=== PATIENT | female | born 1980 | race African-American/Black ===

== ENCOUNTER 2017-01-19 15:01 | Emergency (ER) | payer SELFPAY ==
[2017-01-19] MEDS ORDERED: KETOROLAC TROMETHAMINE 60 MG/2 ML SDV IM ONE (16:15)
--- NOTE | 2017-01-19 16:21 | ER Document Report ---
ED Neck/Back Problem - General Chief Complaint: Back Pain Stated Complaint: BACK PAIN Time Seen by Provider: 01/19/17 16:09 Notes: 36 yo female c/o low back pain x 3 weeks. pt works as a nursing administrator at senior living. pt reports she was lifting a patient and hurt her back. + radiation to both legs. no fever, no paresthesias, no bowel/bladder change. pt has not seen any provider for this pain. she has not tried any OTC meds no hx/o cancer TRAVEL OUTSIDE OF THE [place] IN LAST 30 DAYS: No - HPI Patient complains to provider of: Pain, Injury Where: Work Timing: Constant, Worse Quality of pain: Burning, Sharp Recent injury: Yes Associated symptoms: Radiation to leg, Lower back pain. denies: Fever, Incontinence, Motor loss, Numbness/tingling Exacerbated by: Other - lifting, changing position Relieved by: Nothing - Related Data Allergies/Adverse Reactions: No Known Allergies Allergy (Verified 01/19/17 15:14) Past Medical History - General Information source: Patient - Social History Smoking Status: Unknown if Ever Smoked Chew tobacco use (# tins/day): No Frequency of alcohol use: None Drug Abuse: None Lives with: Family Family History: Reviewed & Not Pertinent - Medical History Medical History: Negative Renal/ Medical History: Denies: Hx Peritoneal Dialysis Past Surgical History: Reports: Hx Gynecologic Surgery - d&c, Hx Tubal Ligation - Immunizations Immunizations up to date: Yes Hx Diphtheria, Pertussis, Tetanus Vaccination: Yes Review of Systems - Review of Systems Constitutional: No symptoms reported EENT: No symptoms reported Cardiovascular: No symptoms reported Respiratory: No symptoms reported Gastrointestinal: No symptoms reported Genitourinary: No symptoms reported Female Genitourinary: No symptoms reported Musculoskeletal: See HPI Skin: No symptoms reported Hematologic/Lymphatic: No symptoms reported Neurological/Psychological: No symptoms reported Physical Exam - Vital signs Vitals: Temp Pulse Resp BP Pulse Ox 97.8 F 85 18 130/88 H 100 01/19/17 15:12 01/19/17 15:12 01/19/17 15:12 01/19/17 15:12 01/19/17 15:12 Interpretation: Normal - General General appearance: Appears well, Alert - HEENT Head: Normocephalic, Atraumatic Eyes: Normal Pupils: PERRL - Respiratory Respiratory status: No respiratory distress Chest status: Nontender Breath sounds: Normal Chest palpation: Normal - Cardiovascular Rhythm: Regular Heart sounds: Normal auscultation Murmur: No - Abdominal Inspection: Normal Distension: No distension Bowel sounds: Normal Tenderness: Nontender Organomegaly: No organomegaly - Back Back: Tender - lumbar spinal and right lumbar paraspinal tenderness. neg SLT, neg heel/toe. - Extremities General upper extremity: Normal inspection, Nontender, Normal color, Normal ROM , Normal temperature General lower extremity: Normal inspection, Nontender, Normal color, Normal ROM , Normal temperature, Normal weight bearing. No: Cat's sign - Neurological Neuro grossly intact: Yes Cognition: Normal Orientation: AAOx4 [place] Coma Scale Eye Opening: Spontaneous [place] Coma Scale Verbal: Oriented [place] Coma Scale Motor: Obeys Commands [place] Coma Scale Total: 15 Speech: Normal Motor strength normal: LUE, RUE, LLE, RLE Sensory: Normal - Psychological Associated symptoms: Normal affect, Normal mood - Skin Skin Temperature: Warm Skin Moisture: Dry Skin Color: Normal Course - Re-evaluation Re-evalutation: 01/19/17 16:23 H&P c/w acute lumbar strain. no neurologic deficits or red flags identified. no emergent imaging indicated. pt is stable for discharge with muscle relaxants , pain medication and anti-inflammatory medication. pt instructed to f/u [facility] or company worker's comp provider for further evaluation and treatment. pt agreeable with plan - Vital Signs Vital signs: Temp Pulse Resp BP Pulse Ox 97.8 F 85 18 130/88 H 100 01/19/17 15:12 01/19/17 15:12 01/19/17 15:12 01/19/17 15:12 01/19/17 15:12 Discharge - Discharge Clinical Impression: Acute low back pain Qualifiers: Back pain laterality: midline Sciatica presence: with sciatica Sciatica laterality: bilateral sciatica Qualified Code(s): M54.42 - Lumbago with sciatica , left side; M54.41 - Lumbago with sciatica, right side Instructions: Ice Packs ([facility]), Warm Packs ([facility]), Low Back Pain ([facility]), Muscle Relaxers ([facility]), Ibuprofen (General) ([facility]), Ultram ([facility]) Additional Instructions: your history and physical are consistant with an acute lumbar strain with sciatica take medications as prescribed please follow up with your primary care or employee's worker's comp provider for further evaluatin and treatment Prescriptions: Ibuprofen [Motrin 800 Mg Tablet] 800 mg PO Q6H #20 tablet Methocarbamol [Robaxin 500 Mg Tablet] 1,000 mg PO Q6 #30 tablet Tramadol HCl [Ultram 50 mg Tablet] 50 mg PO ASDIR PRN #20 tablet PRN Reason: Forms: Elevated Blood Pressure, Restricted Release
[2017-01-19 16:59] VITALS: BP 118/76
== END 2017-01-19 16:50 | disposition home or self-care (01) ==
LOC: ER 15:01
DX: M54.42 Lumbago with sciatica, left side (principal); M54.41 Lumbago with sciatica, right side; M79.604 Pain in right leg; M79.605 Pain in left leg
CPT/HCPCS: 99283; 96372; J1885

== ENCOUNTER 2018-11-02 21:41 | Inpatient (IN) | payer BC ==
[2018-11-02] MEDS ORDERED: ASPIRIN 81 MG TABLET, CHEWABLE PO ONE (23:26)
--- NOTE | 2018-11-02 23:28 | ER Document Report ---
ED Medical Screen (RME) - General Chief Complaint: Chest Pain Stated Complaint: CHEST PAIN Time Seen by Provider: 11/02/18 23:26 Notes: 37-year-old female chief complaint of pain across her chest, towards her left shoulder and arm. Pain is worse with deep breathing. Symptoms started this morning, have worsened throughout the day. Denies cough, fever, injury. Denies nausea or vomiting. Only past medical history reported is tubal ligation. Denies smoking. TRAVEL OUTSIDE OF THE [place] IN LAST 30 DAYS: No - Related Data Allergies/Adverse Reactions: No Known Allergies Allergy (Verified 01/19/17 15:14) Past Medical History - Social History Chew tobacco use (# tins/day): No Frequency of alcohol use: None Drug Abuse: None Renal/ Medical History: Denies: Hx Peritoneal Dialysis Past Surgical History: Reports: Hx Gynecologic Surgery - d&c, Hx Tubal Ligation - Immunizations Immunizations up to date: Yes Hx Diphtheria, Pertussis, Tetanus Vaccination: Yes Physical Exam - Vital signs Vitals: Temp Pulse Resp BP Pulse Ox 98.3 F 93 18 131/84 H 99 11/02/18 22:50 11/02/18 22:50 11/02/18 22:50 11/02/18 22:50 11/02/18 22:50 - Respiratory Respiratory status: No respiratory distress Chest status: Pain with deep breathing Breath sounds: Normal. No: Decreased air movement, Wheezing Course - Re-evaluation Re-evalutation: EKG unremarkable. Patient appears somewhat uncomfortable. She has pain with deep breathing noted on exam. Workup pending. I have greeted and performed a rapid initial assessment of this patient. A comprehensive ED assessment and evaluation of the patient, analysis of test results and completion of the medical decision making process will be conducted by additional ED providers. - Vital Signs Vital signs: Temp Pulse Resp BP Pulse Ox 98.3 F 93 18 131/84 H 99 11/02/18 22:50 11/02/18 22:50 11/02/18 22:50 11/02/18 22:50 11/02/18 22:50
--- NOTE | 2018-11-02 23:59 | RADIOLOGY REPORT (SQ) ---
EXAM DESCRIPTION: XR CHEST 2 VIEWS COMPLETED DATE/TME: 11/02/2018 23:26 CLINICAL HISTORY: 37 years Female, chest pain COMPARISON: None. NUMBER OF VIEWS/TECHNIQUE: 2, Frontal, Lateral FINDINGS: Adequate lung volume, clear parenchyma, normal cardiac silhouette, and intact bony thorax. IMPRESSION: No acute cardiopulmonary findings.
[2018-11-03] MEDS ORDERED: ASPIRIN 81 MG TABLET, CHEWABLE ONE (00:05)
[2018-11-03 00:21] LABS: ABSOLUTE LYMPHOCYTES (AUTO) 1.8 10^3/uL (0.5-4.7); ABSOLUTE MONOCYTES (AUTO) 0.7 10^3/uL (0.1-1.4); ABSOLUTE NEUT (AUTO) 6.8 10^3/uL (1.7-8.2); BASOPHILS % (AUTO) 0.4 % (0-2); EOSINOPHILS % (AUTO) 0.5 % (0-6); HEMOGLOBIN 13.3 g/dL (12.0-15.5); LYMPHOCYTES % (AUTO) 18.8 % (13-45); MEAN CORPUSCULAR HEMOGLOBIN 28.8 pg (27.0-33.4); MEAN CORPUSCULAR HGB CONC 34.2 g/dL (32.0-36.0); MEAN CORPUSCULAR VOLUME 84 fl (80-97); MONOCYTES % (AUTO) 7.6 % (3-13); PLATELET COUNT 207 10^3/uL (150-450); RED BLOOD COUNT 4.63 10^6/uL (3.72-5.28); RED CELL DISTRIBUTION WIDTH 14.1 % (11.5-14.0); SEGMENTED NEUTROPHILS % (AUTO) 72.7 % (42-78); TOTAL CELLS COUNTED % (AUTO) 100 %; WHITE BLOOD COUNT 9.4 10^3/uL (4.0-10.5)
[2018-11-03 00:39] LABS: ALANINE AMINOTRANSFERASE 25 U/L (9-52); ALBUMIN 4.1 g/dL (3.5-5.0); ALKALINE PHOSPHATASE 62 U/L (38-126); ANION GAP 9 (5-19); ASPARTATE AMINO TRANSFERASE 17 U/L (14-36); BILIRUBIN,DIRECT 0.2 mg/dL (0.0-0.4); BILIRUBIN,TOTAL 0.5 mg/dL (0.2-1.3); BLOOD UREA NITROGEN 11 mg/dL (7-20); CALCIUM 9.8 mg/dL (8.4-10.2); CARBON DIOXIDE 25 mmol/L (22-30); CHLORIDE 104 mmol/L (98-107); GLUCOSE 96 mg/dL (75-110); POTASSIUM 4.2 mmol/L (3.6-5.0); SODIUM 137.6 mmol/L (137-145); TOTAL PROTEIN 7.5 g/dL (6.3-8.2)
[2018-11-03] MEDS ORDERED: KETOROLAC TROMETHAMINE INJ/PF 30 MG/1 ML SDV IV ONE (01:22)
--- NOTE | 2018-11-03 02:17 | RADIOLOGY REPORT (SQ) ---
EXAM DESCRIPTION: CT CHEST ANGIOGRAPHY WITHOUT THEN WITH IV CONTRAST COMPLETED DATE/TME: 11/03/2018 01:22 CLINICAL HISTORY: 37 years Female, chest pain, elevated d dimer Comparison: CR, same day. Technique: IV contrast. Coronal and sagittal reformat. 3d reconstruction. This exam was performed according to our departmental dose-optimization program, which includes automated exposure control, adjustment of the mA and/or kV according to patient size and/or use of iterative reconstruction technique.[facility]: Dose Right [facility]: CareDose [facility]: Dose Right [facility]: Teradose 4D [facility]: [employer] LIMITATIONS: None Findings: Nonocclusive saddle embolus of the left interlobar artery at its branching to the lingula. No right ventricular strain. Clear lungs. Inferior neck, axillae, mediastinum, lungs, airway, lymphatics, heart, vasculature, upper abdomen, and musculoskeleton appear otherwise unremarkable. Impression: Small pulmonary embolus of the left interlobar artery.
[2018-11-03] MEDS ORDERED: FENTANYL CITRATE INJ/PF 100 MCG/2 ML AMPUL IV ONE (02:42)
--- NOTE | 2018-11-03 02:45 | ER Document Report ---
ED General - General Chief Complaint: Chest Pain Stated Complaint: CHEST PAIN Time Seen by Provider: 11/02/18 23:26 Notes: Patient is a 37-year-old female that presents to the emergency department for chief complaint of left-sided chest pain. Patient states that she is been having pain is worse with breathing, left side of her chest, mainly in the lower ribs towards the back. This pain started around 8 AM this morning when she woke up, no prior history of pain in her chest. Denies recent travel long distances, or immobilization, surgeries or oral contraceptive pills. She denies family history of heart disease, or pulmonary embolism or DVTs. States she is aware of. She has felt shortness of breath associated with this as well. Past Medical History: Chronic low back pain after injury Past Surgical History: Tubal ligation Social History: Denies tobacco, alcohol or drug use. Family History: Reviewed and noncontributory for presenting illness Allergies: Reviewed, see documented allergy list. REVIEW OF SYSTEMS: Other than noted above, the 12 point review of systems was reviewed with the patient and were negative, all pertinent findings are included in the HPI. PHYSICAL EXAMINATION: Vital signs reviewed, nursing noted reviewed. GENERAL: Well-appearing, well-nourished and patient appears uncomfortable HEAD: Atraumatic, normocephalic. EYES: Eyes appear normal, extraocular movements intact, sclera anicteric, conjunctiva are normal. ENT: nares patent, oropharynx clear without exudates. Moist mucous membranes. NECK: Normal range of motion, supple without lymphadenopathy LUNGS: Breath sounds clear to auscultation bilaterally and equal. No wheezes rales or rhonchi. HEART: Regular rate and rhythm without murmurs ABDOMEN: Soft, nontender, normoactive bowel sounds. No rebound, guarding, or rigidity. No masses appreciated. EXTREMITIES: Nontender, good range of motion, no pitting or edema. NEUROLOGICAL: No focal neurological deficits. Moves all extremities spontaneously Motor and sensory grossly intact on exam. PSYCH: Normal mood, normal affect. SKIN: Warm, Dry, normal turgor, no rashes or lesions noted on exposed skin TRAVEL OUTSIDE OF THE [place] IN LAST 30 DAYS: No - Related Data Allergies/Adverse Reactions: No Known Allergies Allergy (Verified 01/19/17 15:14) Past Medical History - Social History Smoking Status: Never Smoker Chew tobacco use (# tins/day): No Frequency of alcohol use: None Drug Abuse: None Family History: Reviewed & Not Pertinent Patient has suicidal ideation: No Patient has homicidal ideation: No Renal/ Medical History: Denies: Hx Peritoneal Dialysis Past Surgical History: Reports: Hx Gynecologic Surgery - d&c, Hx Tubal Ligation - Immunizations Immunizations up to date: Yes Hx Diphtheria, Pertussis, Tetanus Vaccination: Yes Physical Exam - Vital signs Vitals: Temp Pulse Resp BP Pulse Ox 98.3 F 93 18 131/84 H 99 11/02/18 22:50 11/02/18 22:50 11/02/18 22:50 11/02/18 22:50 11/02/18 22:50 Course - Re-evaluation Re-evalutation: Patient seen and examined vital signs reviewed. Laboratory data and/or imaging were ordered as appropriate for the patient's presenting symptoms and complaint, with consideration of any critical or life threatening conditions that may be associated with their obtained history and exam as noted above. Patient was treated with aspirin ordered in triage, was given a dose of Toradol for her pain Results were reviewed when available and demonstrated negative troponin, d-dimer was added, given patient was mildly tachycardic with her pleuritic pain, and cannot be ruled out by PERC criteria, CT angiogram was ordered after a slightly positive d-dimer, did demonstrate a subtle interlobar pulmonary embolism, patient was started on Lovenox 1 mg/kg subcu The patient was re-evaluated and was stable, no hypoxia, no evidence of right heart strain on CTA Evaluation was most consistent with acute left-sided pulmonary embolism, etiology unclear, would recommend hospitalization Results were discussed with the patient at this point after careful consideration I feel that that patient should be admitted to the hospital. This was discussed with the patient that it is in the best interest for their care to be admitted for further evaluation and management. Patient agreed with this plan of care. A call was placed to the admitted physician, Dr. Rogers who graciously accepted the patient onto their service. *Note is created using voice recognition software and may contain spelling, syntax or grammatical errors. Laboratory 11/03/18 11/03/18 11/03/18 00:00 00:00 00:00 WBC 9.4 RBC 4.63 Hgb 13.3 Hct 39.0 MCV 84 MCH 28.8 MCHC 34.2 RDW 14.1 H Plt Count 207 Seg Neutrophils % 72.7 Lymphocytes % 18.8 Monocytes % 7.6 Eosinophils % 0.5 Basophils % 0.4 Absolute Neutrophils 6.8 Absolute Lymphocytes 1.8 Absolute Monocytes 0.7 Absolute Eosinophils 0.0 Absolute Basophils 0.0 D-Dimer Sodium 137.6 Potassium 4.2 Chloride 104 Carbon Dioxide 25 Anion Gap 9 BUN 11 Creatinine 0.68 Est GFR ( Amer) > 60 Est GFR (Non-Af Amer) > 60 Glucose 96 Calcium 9.8 Total Bilirubin 0.5 Direct Bilirubin 0.2 Neonat Total Bilirubin Not Reportable Neonat Direct Bilirubin Not Reportable Neonat Indirect Bili Not Reportable AST 17 ALT 25 Alkaline Phosphatase 62 Troponin I Total Protein 7.5 Albumin 4.1 Serum HCG, Qual NEGATIVE 11/03/18 11/03/18 00:00 00:00 WBC RBC Hgb Hct MCV MCH MCHC RDW Plt Count Seg Neutrophils % Lymphocytes % Monocytes % Eosinophils % Basophils % Absolute Neutrophils Absolute Lymphocytes Absolute Monocytes Absolute Eosinophils Absolute Basophils D-Dimer 0.54 H Sodium Potassium Chloride Carbon Dioxide Anion Gap BUN Creatinine Est GFR ( Amer) Est GFR (Non-Af Amer) Glucose Calcium Total Bilirubin Direct Bilirubin Neonat Total Bilirubin Neonat Direct Bilirubin Neonat Indirect Bili AST ALT Alkaline Phosphatase Troponin I < 0.012 Total Protein Albumin Serum HCG, Qual Chest X-Ray 11/02/18 23:26 IMPRESSION: No acute cardiopulmonary findings. - Vital Signs Vital signs: Temp Pulse Resp BP Pulse Ox 98.3 F 93 21 H 127/80 H 98 11/02/18 22:50 11/02/18 22:50 11/03/18 02:01 11/03/18 02:01 11/03/18 01:01 - Laboratory Result Diagrams: 11/03/18 00:00 11/03/18 00:00 Laboratory results interpreted by me: 11/03/18 11/03/18 00:00 00:00 RDW 14.1 H D-Dimer 0.54 H - EKG Interpretation by Me Additional EKG results interpreted by me: EKG demonstrates sinus rhythm with a ventricular rate of 90 bpm, normal axis, QTC 424 ms, no ST elevation, no prior for comparison. Critical Care Note - Critical Care Note Total time excluding time spent on procedures (mins): 35 Comments: Critical care time 35 minutes exclusive from separate billable procedures for a patient requiring complex medical decision making, and high potential for clinical deterioration. Patient with acute pulmonary embolism. Time spent obtai cata history from patient or surrogate, discussions with consultants, development of treatment plan with patient or surrogate, evaluation of patient's response to treatment, examination of patient, ordering and performing treatments and interventions, ordering and review of laboratory studies, re-ev aluation of patient's condition, ordering and review of radiographic studies and review of old charts Discharge - Discharge Clinical Impression: Acute pulmonary embolism Qualifiers: Pulmonary embolism type: unspecified Acute cor pulmonale presence: without acute cor pulmonale Qualified Code(s): I26.99 - Other pulmonary embolism without acute cor pulmonale Condition: Stable Disposition: ADMITTED INPATIENT Admitting Provider: Ken (Hospitalist) Unit Admitted: Telemetry
[2018-11-03 02:51] LABS: INTERNATIONAL RATION (INR) 0.93; PROTHROMBIN TIME 12.9 SEC (11.4-15.4)
[2018-11-03] MEDS: ENOXAPARIN SODIUM INJ 120 MG/0.8 ML DISP.SYRIN SUBCUT SCH ×2 (02:51→09:46)
[2018-11-03 02:52] LABS: PARTIAL THROMBOPLASTIN TIME 29.4 SEC (23.5-35.8)
[2018-11-03] MEDS ORDERED: ACETAMINOPHEN 325 MG TABLET PO PRN (02:56)
[2018-11-03] MEDS ORDERED: MAGNESIUM HYDROXIDE SUSP 30 ML UDCUP PO PRN (02:56)
[2018-11-03] MEDS ORDERED: MAG HYDROX/AL HYDROX/SIMETH SUSP 30 ML UDCUP PO PRN (02:56)
[2018-11-03] MEDS ORDERED: IPRATROPIUM/ALBUTEROL 0.5-2.5 MG/3 ML AMPUL NEB PRN (02:56)
[2018-11-03] MEDS ORDERED: DOCUSATE SODIUM 100 MG CAPSULE PO ONE (03:00)
[2018-11-03] MEDS: NORMAL SALINE 1000 ML 1,000 ML IV PRN ×2 (03:14→09:48)
--- NOTE | 2018-11-03 04:47 | PDOC H&P ---
History of Present Illness Admission Date/PCP: 11/03/18 03:00 Patient complains of: Chest pain History of Present Illness: JESSE GRIER is a 37 year old female without significant past medical history who presents with 12 hours of sharp left-sided chest pain which awoke her from sleep. During the day her pain became worsened by deep breathing prompting evaluation emergency room where she is found to have a pulmonary embolism. She started on Lovenox and symptomatic management and referred to the hospitalist for admission. Patient admits active lifestyle with 5 children but recent bilateral leg edema though denies previous history, hormone replacement, control, new medication, trauma, prolonged sedentary state. No family history of thrombophilia but her aunt just with complications from lupus. Past Medical History Medical History: None Past Surgical History Past Surgical History: Reports: Tubal Ligation Social History Information Source: Patient Lives with: Family Smoking Status: Never Smoker Frequency of Alcohol Use: None Drugs: None - Advance Directive Resuscitation Status: Full Code Family History Family History: Other - Lupus Parental Family History Reviewed: Yes Children Family History Reviewed: Yes Sibling(s) Family History Reviewed.: Yes Medication/Allergy Home Medications: Vit/Iron Fumarate/FA [ Plus Tablet] 1 tab PO DAILY 05/01/13 Ibuprofen [Motrin 800 mg Tablet] 800 mg PO Q8 #30 tablet 06/02/14 Hydrocodone/Acetaminophen [Nicholls 5-325 Tablet] 1 each PO Q6 #15 tablet 06/02/15 Cyclobenzaprine HCl [Flexeril 10 Mg Tablet] 10 mg PO Q6H PRN #30 tablet 01/19/17 Ibuprofen [Motrin 800 Mg Tablet] 800 mg PO Q6H #20 tablet 01/19/17 Methocarbamol [Robaxin 500 Mg Tablet] 1,000 mg PO Q6 #30 tablet 01/19/17 Tramadol HCl [Ultram 50 mg Tablet] 50 mg PO ASDIR PRN #20 tablet 01/19/17 Allergies/Adverse Reactions: No Known Allergies Allergy (Verified 01/19/17 15:14) Review of Systems Constitutional: ABSENT: chills, fever(s), headache(s), weight gain, weight loss Eyes: ABSENT: visual disturbances Ears: ABSENT: hearing changes Cardiovascular: ABSENT: chest pain, dyspnea on exertion, edema, orthropnea, palpitations Respiratory: ABSENT: cough, hemoptysis Gastrointestinal: ABSENT: abdominal pain, constipation, diarrhea, hematemesis, hematochezia, nausea, vomiting Genitourinary: ABSENT: dysuria, hematuria Musculoskeletal: ABSENT: joint swelling Integumentary: ABSENT: rash, wounds Neurological: ABSENT: abnormal gait, abnormal speech, confusion, dizziness, focal weakness, syncope Psychiatric: ABSENT: anxiety, depression, homidical ideation, suicidal ideation Endocrine: ABSENT: cold intolerance, heat intolerance, polydipsia, polyuria Hematologic/Lymphatic: ABSENT: easy bleeding, easy bruising Physical Exam Vital Signs: Temp Pulse Resp BP Pulse Ox 98.3 F 93 21 H 127/80 H 98 11/02/18 22:50 11/02/18 22:50 11/03/18 02:01 11/03/18 02:01 11/03/18 01:01 Intake & Output 11/01/18 11/02/18 11/03/18 11:59 11:59 11:59 Weight 119.3 kg General appearance: PRESENT: cooperative, mild distress, obese, well-developed, well-nourished Head exam: PRESENT: atraumatic, normocephalic Eye exam: PRESENT: conjunctiva pink, EOMI, PERRLA. ABSENT: scleral icterus Ear exam: PRESENT: normal external ear exam Mouth exam: PRESENT: moist, tongue midline Neck exam: ABSENT: carotid bruit, JVD, lymphadenopathy, thyromegaly Respiratory exam: PRESENT: crackles, symmetrical, tachypnea. ABSENT: accessory muscle use, rhonchi, wheezes Cardiovascular exam: PRESENT: RRR. ABSENT: diastolic murmur, rubs, systolic murmur Pulses: PRESENT: normal dorsalis pedis pul Vascular exam: PRESENT: normal capillary refill GI/Abdominal exam: PRESENT: normal bowel sounds, soft. ABSENT: distended, guarding, mass, organolmegaly, rebound, tenderness Rectal exam: PRESENT: deferred Extremities exam: PRESENT: full ROM, +1 edema, other - Homans sign negative. ABSENT: calf tenderness, clubbing, pedal edema, tenderness Neurological exam: PRESENT: alert, awake, oriented to person, oriented to place, oriented to time, oriented to situation, CN II-XII grossly intact. ABSENT: motor sensory deficit Psychiatric exam: PRESENT: appropriate affect, normal mood. ABSENT: homicidal ideation, suicidal ideation Skin exam: PRESENT: dry, intact, warm. ABSENT: cyanosis, rash Results Laboratory Results: 11/03/18 00:00 11/03/18 00:00 11/03/18 11/03/18 11/03/18 00:00 00:00 00:00 WBC 9.4 RBC 4.63 Hgb 13.3 Hct 39.0 MCV 84 MCH 28.8 MCHC 34.2 RDW 14.1 H Plt Count 207 Seg Neutrophils % 72.7 Lymphocytes % 18.8 Monocytes % 7.6 Eosinophils % 0.5 Basophils % 0.4 Absolute Neutrophils 6.8 Absolute Lymphocytes 1.8 Absolute Monocytes 0.7 Absolute Eosinophils 0.0 Absolute Basophils 0.0 Sodium 137.6 Potassium 4.2 Chloride 104 Carbon Dioxide 25 Anion Gap 9 BUN 11 Creatinine 0.68 Est GFR ( Amer) > 60 Est GFR (Non-Af Amer) > 60 Glucose 96 Calcium 9.8 Total Bilirubin 0.5 AST 17 ALT 25 Alkaline Phosphatase 62 Total Protein 7.5 Albumin 4.1 Serum HCG, Qual NEGATIVE 11/03/18 11/03/18 00:00 00:00 Troponin I < 0.012 NT-Pro-B Natriuret Pep 13 Impressions: Chest X-Ray 11/02/18 23:26 IMPRESSION: No acute cardiopulmonary findings. Assessment and Plan - Diagnosis (1) Lower extremity edema Is this a current diagnosis for this admission?: Yes Plan: Unclear cause, Homans sign negative, follow-up urinalysis and pelvic ultrasound. (2) Acute pulmonary embolism Qualifiers: Pulmonary embolism type: unspecified Acute cor pulmonale presence: without acute cor pulmonale Qualified Code(s): I26.99 - Other pulmonary embolism without acute cor pulmonale Is this a current diagnosis for this admission?: Yes Plan: Unprovoked pulmonary embolism worrisome for occult hypercoagulable state, sympto matic management and Lovenox 1 mg/kg every 12 hours. Given bilateral leg edema, Homans negative follow-up urinalysis and pelvic ultrasound. Follow-up hematology consult - Time Time Spent with patient: 25-34 minutes - Inpatient Certification Medical Necessity: Need Close Monitoring Due to Risk of Patient Decompensation
[2018-11-03 05:25] LABS: APPEARANCE,URINE CLEAR; BILIRUBIN,URINE NEGATIVE (NEGATIVE); COLOR,URINE YELLOW; GLUCOSE, URINE NEGATIVE (NEGATIVE); KETONES,URINE NEGATIVE (NEGATIVE); LEUKOCYTE ESTERASE,URINE NEGATIVE (NEGATIVE); NITRITE,URINE NEGATIVE (NEGATIVE); PROTEIN,URINE NEGATIVE (NEGATIVE); UROBILINOGEN,URINE NEGATIVE mg/dL (<2.0)
[2018-11-03 05:32] LABS: URINE SPECIFIC GRAVITY > 1.060
--- NOTE | 2018-11-03 08:42 | RADIOLOGY REPORT (SQ) ---
EXAM DESCRIPTION: U/S NON OB PEL W/DOPPLER COMPLETED DATE/TIME: 11/03/2018 8:30 am REASON FOR STUDY: blt leg edema, acute unprovoked pe ovarian CA? COMPARISON: 07/25/2011. TECHNIQUE: Dynamic and static grayscale images acquired of the pelvis via transabdominal approach an d recorded on PACS. Additional selected color Doppler and spectral images recorded. LIMITATIONS: None. FINDINGS: UTERUS: Contour normal. No mass. ENDOMETRIAL STRIPE: No focal or generalized thickening. No masses. CERVIX: No nabothian cysts. RIGHT OVARY AND DOPPLER: Normal size. No worrisome masses. Normal arterial vascular flow without evid ence for torsion. LEFT OVARY AND DOPPLER: Normal size. No worrisome masses. Normal arterial vascular flow without evide nce for torsion. FREE FLUID: None noted. OTHER: No other significant finding. MEASUREMENTS: UTERUS: 5.4 x 5.9 x 10.9 cm. ENDOMETRIAL STRIPE: 1.0 cm. RIGHT OVARY: 2.4 x 3.4 x 3.8 cm. LEFT OVARY: 1.6 x 2.2 x 2.3 cm. IMPRESSION: NORMAL PELVIC ULTRASOUND BY TRANSABDOMINAL TECHNIQUE. TECHNICAL DOCUMENTATION: JOB ID: [id number] [employer]- All Rights Reserved Rev Reading location - IP/workstation name: [email or web address]
[2018-11-03 09:08] LABS: ANION GAP 7 (5-19); BLOOD UREA NITROGEN 9 mg/dL (7-20); CALCIUM 8.9 mg/dL (8.4-10.2); CARBON DIOXIDE 25 mmol/L (22-30); CHLORIDE 106 mmol/L (98-107); GLUCOSE 81 mg/dL (75-110); POTASSIUM 3.8 mmol/L (3.6-5.0); SODIUM 138.1 mmol/L (137-145)
--- NOTE | 2018-11-03 09:31 | PDOC CONSULTATION ---
Consultation Consult Date: 11/03/18 Attending physician:: ANIBAL BOLTON Consult reason:: Pulmonary embolism History of Present Illness Admission Date/PCP: 11/03/18 03:00 Patient complains of: Shortness of breath chest pain History of Present Illness: JESSE GRIER is a 37 year old female with 24-hour history of shortness of breath and chest pain ultimately she presented to the ED, CT of the chest was done she had a left lung PE. Of note she had bilateral leg pain for the last few weeks/months. Swelling in the legs right greater than left although she is having some left calf tenderness today. She did have a spinal injection for back pain in July and had a severe reaction to it had severe pain afterwards and radiation of pain down the right leg. Neurology has been working with her to try and improve the situation. She has never had a blood clot does not have strong family history of it. Past Surgical History Past Surgical History: Reports: Tubal Ligation, Other - Back injection Social History Lives with: Family Smoking Status: Never Smoker Frequency of Alcohol Use: None Hx Recreational Drug Use: No Drugs: None Hx Prescription Drug Abuse: No - Advance Directive Resuscitation Status: Full Code Family History Family History: Other - Lupus Parental Family History Reviewed: Yes Children Family History Reviewed: Yes Sibling(s) Family History Reviewed.: Yes Medication/Allergy Home Medications: No Home Medications 11/03/18 Allergies/Adverse Reactions: No Known Allergies Allergy (Verified 01/19/17 15:14) Review of Systems Constitutional: ABSENT: chills, fever(s), headache(s), weight gain, weight loss Eyes: ABSENT: visual disturbances Ears: ABSENT: hearing changes Cardiovascular: ABSENT: chest pain, dyspnea on exertion, edema, orthropnea, palpitations Respiratory: ABSENT: cough, hemoptysis Gastrointestinal: ABSENT: abdominal pain, constipation, diarrhea, hematemesis, hematochezia, nausea, vomiting Genitourinary: ABSENT: dysuria, hematuria Musculoskeletal: ABSENT: joint swelling Integumentary: ABSENT: rash, wounds Neurological: ABSENT: abnormal gait, abnormal speech, confusion, dizziness, focal weakness, syncope Psychiatric: ABSENT: anxiety, depression, homidical ideation, suicidal ideation Endocrine: ABSENT: cold intolerance, heat intolerance, polydipsia, polyuria Hematologic/Lymphatic: ABSENT: easy bleeding, easy bruising Physical Exam Vital Signs: Temp Pulse Resp BP Pulse Ox 97.7 F 78 16 103/50 L 100 11/03/18 08:01 11/03/18 08:01 11/03/18 08:01 11/03/18 08:01 11/03/18 08:01 Intake & Output 11/02/18 11/03/18 11/04/18 06:59 06:59 06:59 Intake Total 233 Balance 233 Weight 118.3 kg General appearance: PRESENT: no acute distress, well-developed, well-nourished Head exam: PRESENT: atraumatic, normocephalic Eye exam: PRESENT: conjunctiva pink, EOMI, PERRLA. ABSENT: scleral icterus Ear exam: PRESENT: normal external ear exam Mouth exam: PRESENT: moist, tongue midline Neck exam: ABSENT: carotid bruit, JVD, lymphadenopathy, thyromegaly Respiratory exam: PRESENT: clear to auscultation kaylee. ABSENT: rales, rhonchi, wheezes Cardiovascular exam: PRESENT: RRR. ABSENT: diastolic murmur, rubs, systolic murmur Pulses: PRESENT: normal dorsalis pedis pul Vascular exam: PRESENT: normal capillary refill GI/Abdominal exam: PRESENT: normal bowel sounds, soft. ABSENT: distended, guarding, mass, organolmegaly, rebound, tenderness Rectal exam: PRESENT: deferred Extremities exam: PRESENT: full ROM. ABSENT: calf tenderness, clubbing, pedal edema Neurological exam: PRESENT: alert, awake, oriented to person, oriented to place, oriented to time, oriented to situation, CN II-XII grossly intact. ABSENT: motor sensory deficit Psychiatric exam: PRESENT: appropriate affect, normal mood. ABSENT: homicidal ideation, suicidal ideation Skin exam: PRESENT: dry, intact, warm. ABSENT: cyanosis, rash Results Laboratory Results: 11/03/18 00:00 11/03/18 07:44 11/03/18 11/03/18 11/03/18 00:00 00:00 00:00 WBC 9.4 RBC 4.63 Hgb 13.3 Hct 39.0 MCV 84 MCH 28.8 MCHC 34.2 RDW 14.1 H Plt Count 207 Seg Neutrophils % 72.7 Lymphocytes % 18.8 Monocytes % 7.6 Eosinophils % 0.5 Basophils % 0.4 Absolute Neutrophils 6.8 Absolute Lymphocytes 1.8 Absolute Monocytes 0.7 Absolute Eosinophils 0.0 Absolute Basophils 0.0 Sodium 137.6 Potassium 4.2 Chloride 104 Carbon Dioxide 25 Anion Gap 9 BUN 11 Creatinine 0.68 Est GFR ( Amer) > 60 Est GFR (Non-Af Amer) > 60 Glucose 96 Calcium 9.8 Total Bilirubin 0.5 AST 17 ALT 25 Alkaline Phosphatase 62 Total Protein 7.5 Albumin 4.1 Serum HCG, Qual NEGATIVE Urine Color Urine Appearance Urine pH Ur Specific [place] Urine Protein Urine Glucose (UA) Urine Ketones Urine Blood Urine Nitrite Ur Leukocyte Esterase Urine WBC (Auto) Urine RBC (Auto) 11/03/18 11/03/18 04:30 07:44 WBC RBC Hgb Hct MCV MCH MCHC RDW Plt Count Seg Neutrophils % Lymphocytes % Monocytes % Eosinophils % Basophils % Absolute Neutrophils Absolute Lymphocytes Absolute Monocytes Absolute Eosinophils Absolute Basophils Sodium 138.1 Potassium 3.8 Chloride 106 Carbon Dioxide 25 Anion Gap 7 BUN 9 Creatinine 0.61 Est GFR ( Amer) > 60 Est GFR (Non-Af Amer) > 60 Glucose 81 Calcium 8.9 Total Bilirubin AST ALT Alkaline Phosphatase Total Protein Albumin Serum HCG, Qual Urine Color YELLOW Urine Appearance CLEAR Urine pH 5.0 Ur Specific [place] > 1.060 Urine Protein NEGATIVE Urine Glucose (UA) NEGATIVE Urine Ketones NEGATIVE Urine Blood NEGATIVE Urine Nitrite NEGATIVE Ur Leukocyte Esterase NEGATIVE Urine WBC (Auto) 0 Urine RBC (Auto) 2 11/03/18 11/03/18 00:00 00:00 Troponin I < 0.012 NT-Pro-B Natriuret Pep 13 Impressions: Chest X-Ray 11/02/18 23:26 IMPRESSION: No acute cardiopulmonary findings. Pelvis Ultrasound 11/03/18 00:00 IMPRESSION: NORMAL PELVIC ULTRASOUND BY TRANSABDOMINAL TECHNIQUE. Status: Image reviewed by me Assessment & Plan - Diagnosis (1) Acute pulmonary embolism Qualifiers: Pulmonary embolism type: other Acute cor pulmonale presence: without acute cor pulmonale Qualified Code(s): I26.99 - Other pulmonary embolism without acute cor pulmonale Is this a current diagnosis for this admission?: Yes Plan: PE, continue Lovenox for another 24 hours. Hospitalist team should give her a prescription for Xarelto starter pack, and she should see if her pharmacy will fill it appropriately without a large co-pay. If she is able to walk without severe chest pain and hypoxia than I believe she could discharge home by tomorrow. We will follow her up as an outpatient and do further workup there. I will talk to hospitalist team also about ordering bilateral lower extremity Dopplers to see if there is any DVT. Will follow.
[2018-11-03] MEDS: DOCUSATE SODIUM 100 MG CAPSULE PO SCH ×2 (09:40→19:22)
--- NOTE | 2018-11-03 09:47 | EKG REPORT ---
SEVERITY:- NORMAL ECG - SINUS RHYTHM : Confirmed by: Anirudh Goode 03-Nov-2018 09:46:46
[2018-11-03] MEDS: OXYCODONE-ACETAMINOPHEN 5-325 MG TABLET PO PRN ×2 (11:02→22:09)
[2018-11-03] MEDS ORDERED: HYDROMORPHONE HCL INJ/PF 2 MG/ML AMPULE IV PRN (13:03)
--- NOTE | 2018-11-03 13:31 | Progress Note ---
Provider Note Provider Note: This is a 37 years old black female patient with no significant medical problems presented with chief complaint of chest pain. Patient reports this she is in her usual baseline state of health up until yesterday when she started to have chest pain localized to her left side associated with shortness of breath and p alpitation. As the pain gets increasingly worse patient came to ER for further evaluation and management. Her CTA of the chest is positive for left pulmonary emboli. Patient does not have any family history of clotting disorder. Patient has been started on Lovenox. Morning I switched her to Xarelto after I discussed the case with Dr. Pang. Patient reported some relief but still she has some chest pain. This morning venous Doppler of the bilateral leg is negative for DVT.
--- NOTE | 2018-11-03 16:04 | XCELERA REPORT ---
[address] [facility] [address] Lower Extremity Venous Evaluation Procedure: Color flow and duplex imaging bilaterally of the veins of the lower extremities as well as the Common Femoral veins. Right Sided Venous Evaluation Normal vessel filling wall to wall, compression and augmentation as well as Colour flow down to the infrageniculate veins. Left Sided Venous Evaluation Normal vessel filling wall to wall, compression and augmentation as well as Colour flow down to the infrageniculate veins. Interpretation Summary No duplex evidence of DVT or obstruction in the bilateral lower extremities. Name: JESSE GRIER Age: 37 yrs Gender: Female : 1980 Patient Status: Inpatient Patient Location: [address] [place] [address] Study Date: 11/03/2018 11:48 AM Reason For Study: DVT Ordering Physician: ALVIN VALENZUELA Performed By: Cristal Upton : ALVIN VALENZUELA > Jonathan Strauss
[2018-11-03] MEDS ORDERED: ONDANSETRON HCL INJ/PF 4 MG/2 ML SDV IV PRN (16:44)
[2018-11-03] MEDS: RIVAROXABAN 15 MG TABLET PO SCH (17:57)
[2018-11-04 04:21] LABS: ANION GAP 5 (5-19); BLOOD UREA NITROGEN 8 mg/dL (7-20); CALCIUM 9.1 mg/dL (8.4-10.2); CARBON DIOXIDE 22 mmol/L (22-30); CHLORIDE 110 mmol/L (98-107); GLUCOSE 85 mg/dL (75-110); POTASSIUM 4.6 mmol/L (3.6-5.0); SODIUM 136.8 mmol/L (137-145)
[2018-11-04] MEDS: RIVAROXABAN 15 MG TABLET PO SCH (07:17)
[2018-11-04] MEDS: OXYCODONE-ACETAMINOPHEN 5-325 MG TABLET PO PRN (07:17)
--- NOTE | 2018-11-04 08:53 | PDOC DISCHARGE SUMMARY ---
General - Admit/Disc Date/PCP Admission Date/Primary Care Provider: 11/03/18 03:00 Discharge Date: 11/04/18 - Discharge Diagnosis (1) Acute pulmonary embolism Is this a current diagnosis for this admission?: Yes (2) Lower extremity edema Is this a current diagnosis for this admission?: Yes (3) Chronic back pain Is this a current diagnosis for this admission?: Yes (4) Obesity (BMI 30-39.9) Is this a current diagnosis for this admission?: Yes - Additional Information Resuscitation Status: Full Code Home Medications: No Home Medications 11/03/18 History of Present Illness History of Present Illness: JESSE GRIER is a 37 year old female without significant past medical history who presents with 12 hours of sharp left-sided chest pain which awoke her from sleep. During the day her pain became worsened by deep breathing prompting evaluation emergency room where she is found to have a pulmonary embolism. She started on Lovenox and symptomatic management and referred to the hospitalist for admission. Patient admits active lifestyle with 5 children but recent bilateral leg edema though denies previous history, hormone replacement, control, new medication, trauma, prolonged sedentary state. No family history of thrombophilia but her aunt just with complications from lupus. Hospital Course Hospital Course: This is a 37 years old black female patient with no significant medical problems presented with chief complaint of chest pain. Patient reports this she is in her usual baseline state of health up until yesterday when she started to have chest pain localized to her left side associated with shortness of breath and palpitation. As the pain gets increasingly worse patient came to ER for further evaluation and management. Her CTA of the chest is positive for left pulmonary emboli. Patient does not have any family history of clotting disorder. Patient has been started on Lovenox. Venous Doppler of bilateral lower extremities negative for DVT. This morning I seen patient sitting up right in bed and enjoying her breakfast. Her chest pain has been subsiding. She is awake alert oriented. Patient is going to be discharged in stable condition. I will prescribe for her Xarelto 50 mg twice a day for 21 days and thereafter 20 mg p.o. daily. And follow-up with her primary care physician. Physical Exam Vital Signs: Temp Pulse Resp BP Pulse Ox 97.6 F 82 16 111/42 L 100 11/04/18 07:32 11/04/18 07:32 11/04/18 07:32 11/04/18 07:32 11/04/18 07:32 Intake & Output 11/03/18 11/04/18 11/05/18 06:59 06:59 06:59 Intake Total 233 2239 Balance 233 2239 Weight 118.3 kg 122.4 kg General appearance: PRESENT: no acute distress, obese Head exam: PRESENT: atraumatic, normocephalic Eye exam: PRESENT: conjunctiva pink Neck exam: ABSENT: carotid bruit, JVD, lymphadenopathy, thyromegaly Respiratory exam: PRESENT: clear to auscultation kaylee. ABSENT: rales, rhonchi, wheezes Cardiovascular exam: PRESENT: RRR. ABSENT: diastolic murmur, rubs, systolic murmur Neurological exam: PRESENT: alert, awake, oriented to time, oriented to situation Results Laboratory Results: 11/03/18 00:00 11/04/18 02:55 11/03/18 11/04/18 07:44 02:55 Sodium 138.1 136.8 L Potassium 3.8 4.6 Chloride 106 110 H Carbon Dioxide 25 22 Anion Gap 7 5 BUN 9 8 Creatinine 0.61 0.57 Est GFR ( Amer) > 60 > 60 Est GFR (Non-Af Amer) > 60 > 60 Glucose 81 85 Calcium 8.9 9.1 11/03/18 11/03/18 00:00 00:00 Troponin I < 0.012 NT-Pro-B Natriuret Pep 13 Impressions: Chest X-Ray 11/02/18 23:26 IMPRESSION: No acute cardiopulmonary findings. Pelvis Ultrasound 11/03/18 00:00 IMPRESSION: NORMAL PELVIC ULTRASOUND BY TRANSABDOMINAL TECHNIQUE. Qualifiers - * PATIENT BEING DISCHARGED WITH ANY OF THE FOLLOWING DIAGNOSIS: No
[2018-11-04] MEDS: DOCUSATE SODIUM 100 MG CAPSULE PO SCH (09:00)
[2018-11-04 09:01] VITALS: BP 131/84
== END 2018-11-04 10:16 | disposition home or self-care (01) | DRG 176 ==
LOC: ER 21:41 → EH 11-03 03:00 → 3W 11-03 04:20
PROVIDERS: ADMIT Internal Medicine; ATTEND Internal Medicine
DX: I26.99 Other pulmonary embolism without acute cor pulmonale (principal); R60.9 Edema, unspecified; Z98.51 Tubal ligation status
CPT/HCPCS: 36415; 71046; 71275; 76856; 80048; 80053; 81001; 83880; 84484; 84703; 85025; 85379; 85610; 85730; 93005; 93010; 93970; 93976; 96374; 96375; 99291; J1170; J1650; J1885; J2405; J3010; J7030